=== PATIENT | male | born 1945 | race Caucasian/White ===

== ENCOUNTER 2019-11-12 20:18 | Emergency (ER) | payer MEDICARE ==
[~2019-11-12] VITALS: Ht 175.3 cm; Wt 104.3 kg
[2019-11-12] MEDS ORDERED: FENTANYL CITRATE/PF 100MCG/2 ML INJ IV ONE (20:30)
[2019-11-12] MEDS ORDERED: KETOROLAC TROMETHAMINE 30 MG/ML VIAL IV ONE (20:30)
[2019-11-12 20:50] LABS: BASOPHILS # (AUTO) 0.1 (0.0-0.1); BASOPHILS % 0.5 % (0.0-1.0); EOSINOPHILS # (AUTO) 0.7 (0.0-0.4); EOSINOPHILS % 5.6 % (0.0-6.0); HEMOGLOBIN 13.8 g/dL (14.0-18.0); LYMPHOCYTES # (AUTO) 1.7 (1.0-3.2); LYMPHOCYTES % 13.1 % (18.0-39.1); MEAN CORPUSCULAR HEMOGLOBIN 30.9 pg (28-32); MEAN CORPUSCULAR HGB CONC 32.9 g/dL (31-35); MEAN CORPUSCULAR VOLUME 94.2 fL (81-99); MONOCYTES # (AUTO) 1.3 (0.2-0.8); MONOCYTES % 10.2 % (4.4-11.3); NEUTROPHILS # (AUTO) 9.1 (2.1-6.9); NEUTROPHILS % 70.1 % (38.7-80.0); PLATELET COUNT 253 x10e3/uL (140-360); RED BLOOD COUNT 4.46 x10e6/uL (4.3-5.7); RED CELL DISTRIBUTION WIDTH 13.1 % (11.7-14.4)
[2019-11-12 21:13] LABS: ALBUMIN 3.7 g/dL (3.5-5.0); ANION GAP 17.1 mmol/L (8-16); CALCIUM 9.1 mg/dL (8.4-10.2); CREATININE, SERUM 1.61 mg/dL (0.72-1.25); POTASSIUM 4.1 mmol/L (3.5-5.1)
--- NOTE | 2019-11-12 21:30 | Emergency Department Note ---
History of Present Illnes History of Present Illness Chief Complaint: General Medicine Complaints History of Present Illness This is a 74 year old male Chief Complaint Comment PT C/O PAIN TO RIGHT FLANK AREA, FOR OVER A WEEK NOW, PT HAD SOME HEMATURIA 3-4 DAYS AGO WHICH HAS RESOLVED, SAW UROLOGIST 2 DAYS AGO AND SENT FOR A CT SCAN YESTERDAY AT [facility] [place] [facility] FOR POSSIBLE KIDNEY STONE VERSUS OTHER ETIOLOGY? PAIN IS BECOMING TOO PAINFUL AND PT IS CONCERNED. Historian: Patient Arrival Mode: Car Flight Surgeon Required: No Onset (how long ago): day(s) (4) Location: R flank, RLQ abdomen Quality: Sharp Radiation: Reports non-radiation Severity: mild Onset quality: sudden Duration (how long): day(s) (4) Timing of current episode: constant Progression: worsening Chronicity: new Context: Denies recent illness, Denies recent surgery Relieving factors: none Exacerbating factors: none Associated symptoms: Reports denies other symptoms Treatments prior to arrival: none Past Medical/Family History Physician Review I have reviewed the patient's past medical and family history. Any updates have been documented here. Past Medical History Recent Fever: No Clinical Suspicion of Infectio: No New/Unexplained Change in Ment: No Past Medical History: Hypertension, Diabetes Other Medical History: PROSTATE CA Other Surgery: RTKR PROSTATECTOMY EYE SURGERIES Social History Physically hurt or threatened: No Review of Systems Review of Systems Constitutional: Reports no symptoms EENTM: Reports no symptoms Cardiovascular: Reports no symptoms Respiratory: Reports no symptoms Gastrointestinal: Reports as per HPI, Reports abdominal pain (RLQ) Genitourinary: Reports no symptoms Musculoskeletal: Reports no symptoms Integumentary: Reports no symptoms Neurological: Reports no symptoms Psychological: Reports no symptoms Endocrine: Reports no symptoms Hematological/Lymphatic: Reports no symptoms Physical Exam Related Data Allergies: Coded Allergies: No Known Allergies (Unverified , 11/12/19) Triage Vital Signs Vital Signs Date Time Temp Pulse Resp B/P (MAP) Pulse Ox O2 Delivery O2 Flow Rate FiO2 11/12/19 20:25 99.9 83 18 169/74 97 Room Air Vital signs reviewed: Yes Physical Exam CONSTITUTIONAL Constitutional: Present well-developed, Present well-nourished HENT HENT: Present normocephalic, Present atraumatic, Present oropharynx clear/moist, Present nose normal HENT L/R: Present left ext ear normal, Present right ext ear normal EYES Eyes: Reports PERRL, Reports conjunctivae normal NECK Neck: Present ROM normal PULMONARY Pulmonary: Present effort normal, Present breath sounds normal CARDIOVASCULAR Cardiovascular: Present regular rhythm, Present heart sounds normal, Present capillary refill normal, Present normal rate GASTROINTESTINAL Abdominal: Present soft, Present bowel sounds normal, Present tender (RLQ) GENITOURINARY Genitourinary: Present exam deferred SKIN Skin: Present warm, Present dry MUSCULOSKELETAL Musculoskeletal: Present ROM normal NEUROLOGICAL Neurological: Present alert, Present oriented x 3, Present no gross motor or sensory deficits PSYCHOLOGICAL Psychological: Present mood/affect normal, Present judgement normal Results Laboratory Result Diagram: 11/12/19203411/12/192034 Laboratory Laboratory Tests Test 11/12/19 20:35 White Blood Count 12.90 x10e3/uL (4.8-10.8) Red Blood Count 4.46 x10e6/uL (4.3-5.7) Hemoglobin 13.8 g/dL (14.0-18.0) Hematocrit 42.0 % (38.2-49.6) Mean Corpuscular Volume 94.2 fL (81-99) Mean Corpuscular Hemoglobin 30.9 pg (28-32) Mean Corpuscular Hemoglobin Concent 32.9 g/dL (31-35) Red Cell Distribution Width 13.1 % (11.7-14.4) Platelet Count 253 x10e3/uL (140-360) Neutrophils (%) (Auto) 70.1 % (38.7-80.0) Lymphocytes (%) (Auto) 13.1 % (18.0-39.1) Monocytes (%) (Auto) 10.2 % (4.4-11.3) Eosinophils (%) (Auto) 5.6 % (0.0-6.0) Basophils (%) (Auto) 0.5 % (0.0-1.0) Neutrophils # (Auto) 9.1 (2.1-6.9) Lymphocytes # (Auto) 1.7 (1.0-3.2) Monocytes # (Auto) 1.3 (0.2-0.8) Eosinophils # (Auto) 0.7 (0.0-0.4) Basophils # (Auto) 0.1 (0.0-0.1) Absolute Immature Granulocyte (auto 0.06 x10e3/uL (0-0.1) Sodium Level 138 mmol/L (136-145) Potassium Level 4.1 mmol/L (3.5-5.1) Chloride Level 104 mmol/L (98-107) Carbon Dioxide Level 21 mmol/L (22-29) Anion Gap 17.1 mmol/L (8-16) Blood Urea Nitrogen 17 mg/dL (7-26) Creatinine 1.61 mg/dL (0.72-1.25) Estimat Glomerular Filtration Rate 42 ML/MIN (60-) BUN/Creatinine Ratio 11 (6-25) Glucose Level 148 mg/dL (74-118) Calcium Level 9.1 mg/dL (8.4-10.2) Total Bilirubin 0.4 mg/dL (0.2-1.2) Aspartate Amino Transf (AST/SGOT) 14 IU/L (5-34) Alanine Aminotransferase (ALT/SGPT) 15 IU/L (0-55) Alkaline Phosphatase 70 IU/L (40-150) Total Protein 7.4 g/dL (6.5-8.1) Albumin 3.7 g/dL (3.5-5.0) Globulin 3.7 g/dL (2.3-3.5) Albumin/Globulin Ratio 1.0 (0.8-2.0) Assessment & Plan Medical Decision Making MDM 74-year-old male with history of kidney stones presents for right-sided flank/right lower quadrant abdominal pain. He was recently seen by Dr. fields and had a CAT scan yesterday but does not results of this. Exam shows mild right lower quadrant tenderness to palpation. Vital signs stable, within normal li mits. Workup including CT abdomen and pelvis, labs show 3mm nephrolithiasis. Discussed with patient that he can take ibuprofen for pain but to call Dr. Jolley for continued use of ibuprofen given his kidney function. T3 Rx for breakthrough pain given. Patient states agreement to plan and is appropriate for discharge. Reassessment Reassessment time: 21:30 Reassessment Well appearing, NAD Assessment & Plan Final Impression: (1) Nephrolithiasis Depart Disposition: HOME, SELF-CARE Last Vital Signs Date Time Temp Pulse Resp B/P (MAP) Pulse Ox O2 Delivery O2 Flow Rate FiO2 11/12/19 20:25 99.9 83 18 169/74 97 Room Air Home Meds Active Scripts Acetaminophen/Codeine* (TYLENOL # 3*) 1 Ea Tab, 30-300 MG PO DAILY PRN for pain, #10 TAB Prov:MYKEL FARRIS MD 11/12/19 Medications in the ED Ketorolac Tromethamine 15 mg ONCE ONCE IV ; Start 11/12/19 at 20:30; Stop 11/12/19 at 20:47; Status DC Fentanyl Citrate 50 mcg ONCE ONCE IV ; Start 11/12/19 at 20:30; Stop 11/12/19 at 20:47; Status DC MYKEL FARRIS MD Nov 12, 2019 21:30
[2019-11-12] MEDS ORDERED: SODIUM CHLORIDE 0.9% 500ML 500 ML IV STA (21:31)
[2019-11-12] MEDS ORDERED: SODIUM CHLORIDE 0.9% 500ML 500 ML ONE (21:39)
--- NOTE | 2019-11-12 22:43 | Diagnostic Imaging Report ---
EXAM: CT Abdomen and Pelvis WITH contrast INDICATION: RLQ pain COMPARISON: None. TECHNIQUE: Abdomen and pelvis were scanned utilizing a multidetector helical scanner from the lung base to the pubic symphysis after administration of IV contrast. Coronal and sagittal reformations were obtained. Routine protocol was performed. Scan was performed when during portal venous phase. IV CONTRAST: 100 mL of Isovue 370 ORAL CONTRAST: None COMPLICATIONS: None RADIATION DOSE: Total DLP: 743.12 mGy*cm Estimated effective dose: (DLP x 0.015 x size factor) mSv CTDIvol has been reviewed. It is below the limits set by the Radiation Protocol Committee (RPC). Dose modulation, iterative reconstruction, and/or weight based adjustment of the mA/kV was utilized to reduce the radiation dose to as low as reasonably achievable. FINDINGS: LINES and TUBES: None. LOWER THORAX: 3 mm nodule in the right lower lobe. HEPATOBILIARY: Noncirrhotic liver morphology. A couple simple fluid attenuating lesions measuring up to 1 cm, likely cysts. No biliary ductal dilation. GALLBLADDER: No radio-opaque stones or sludge. No wall thickening. SPLEEN: No splenomegaly. PANCREAS: No focal masses or ductal dilatation. ADRENALS: No adrenal nodules KIDNEYS/URETERS: Mild right perinephric stranding. Right periureteral stranding. 3 mm calculus in the urinary bladder. No hydronephrosis. Bilateral simple renal cysts measuring up to 2.1 cm. Additional subcentimeter hypodensities are too small to characterize, likely additional cysts. GI TRACT: No abnormal distention, wall thickening, or evidence of bowel obstruction. Appendix is normal. PELVIC ORGANS/BLADDER: Unremarkable. LYMPH NODES: No lymphadenopathy. VESSELS: There is moderate noncalcified atherosclerotic plaque in the infrarenal abdominal producing 25-50% focal narrowing PERITONEUM / RETROPERITONEUM: No free air or fluid. BONES: There are degenerative changes in the spine. SOFT TISSUES: Unremarkable. IMPRESSION: 1. Mild right perinephric and right ureteral inflammatory changes likely secondary to 3 mm calculus within the urinary bladder. No hydronephrosis. 2. 3 mm right lower lobe pulmonary nodule. If available, comparisons with prior imaging would be helpful to establish stability. Otherwise, consider follow-up low-dose chest CT 12 months. Signed by: Ramin Vega MD on 11/12/2019 10:40 PM
[2019-11-12] MEDS ORDERED: SODIUM CHLORIDE 0.9% 250ML 250 ML ONE (23:09)
[2019-11-12 23:11] LABS: CLARITY,URINE CLEAR (CLEAR); COLOR,URINE YELLOW (YELLOW); KETONES,URINE NEGATIVE (NEGATIVE); LEUKOCYTE ESTERASE ,URINE NEGATIVE (NEGATIVE); NITRITE,URINE NEGATIVE (NEGATIVE); PROTEIN,URINE DIPSTICK TRACE (NEGATIVE); URINE UROBILINOGEN 0.2 mg/dL (0.2 - 1)
[2019-11-12] MEDS ORDERED: TYLENOL # 31 EA PO (23:11)
[2019-11-12 23:12] LABS: BILIRUBIN,URINE NEGATIVE (NEGATIVE); MUCUS,URINE FEW (RARE); WBC,URINE (MAN) 0-5 /HPF (0-5)
== END 2019-11-12 23:45 | disposition home or self-care (01) ==
LOC: ER 20:41
DX: R10.31 Right lower quadrant pain (principal); N20.0 Calculus of kidney; R50.9 Fever, unspecified; I10 Essential (primary) hypertension; E11.9 Type 2 diabetes mellitus without complications; Z85.46 Personal history of malignant neoplasm of prostate
CPT/HCPCS: 36415; 74177; 80053; 81001; 85025; 87086; 99284; J1885; J3010; J7040; J7050